=== PATIENT | male | born 1995 | race Caucasian/White ===

== ENCOUNTER 2025-01-22 20:33 | Emergency (ER) | payer OTHER, SELFPAY ==
--- OUTSIDE RECORDS SUMMARY | 2025-01-22 20:35 | XMS_ITS | Clinical Summary ---
[facility] Organization [facility] Address [address] [place] [address] Care Team Providers Care Casting House Worker Name Role Phone James Fernandez MD Primary Care Provider Source Comments You are receiving this document as you are listed as the primary care provider,follow-up provider, or the patient has been referred to you for consultation.This is in compliance with the Medicare and[facility] EHR Incentive Program,which states Providers who transition their patient to another setting of careor provider of care or refers their patient to another provider of care shouldprovide summary care record for each transition of care or referral. [facility] Allergies No known active allergies Medications DULoxetine (CYMBALTA) 60 MG capsuleIndicatio ns:Recurrent major depressive disorder, in full remission (HRC),Generalize d anxiety disorder (HRC) Take 1 Capsule (60 mg) by mouth daily. 90 Capsule 3 4 03/22/20 25 Active DULoxetine (CYMBALTA) 30 MG capsuleIndicatio ns:Episode of recurrent major depressive disorder, unspecified depression episode severity (HRC),Generalize d anxiety disorder (HRC) Take 1 capsule in AM and 2 capsules at bedtime. Indication: anxiety and depression 270 Capsule 3 4 Active Active Problems Problem Noted Date Diagnosed Date Generalized anxiety disorder 12/27/2023 Chronic insomnia 12/27/2023 Major depression 02/03/2023 Overview (02/04/2023): chronic, see office note dated 02/03/23 for details Tobacco use 01/03/2023 Overview (01/03/2023): up to 1 ppd since age 14, smoking 1/2 ppd lately. Updated 12/2022 Immunizations Immunization Administration Dates Next Due Influenza IIV4 (Quadrivalent) 0.5mL (07677) 10/16 Chiquis COVID-19 Vaccine 01/20/2021 PCV20 ([id number]) 01/02/2023 Pfizer Bivalent 12+ 01/02/2023 Pfizer Monovalent 12+ Purple Top 10/25/2021 Tdap 01/02/2023 Family History Medical History Relation Name Comments Bipolar Disorder Father Cancer, Breast Mother Cancer, Ovary Mother Dementia Maternal Grandmother No Known Problems Sister Relation Name Status Comments Father Alive Mother Alive Maternal Grandfather Maternal Grandmother Paternal Grandfather Paternal Grandmother Sister Alive Social History Tobacco Use Types Packs/Day Years Used Date Smoking Tobacco: Unknown Smokeless Tobacco: Never Tobacco Cessation:Counseling Given: Not Answered Alcohol Use Standard Drinks/Week Comments Yes 7 (1 standard drink = 0.6 oz pur e alcohol) PHQ-2 Answer Date Recorded PHQ-2 Score 5 09/20/2024 Financial Resource Strain Answer Date R ecorded Is it hard for you to pay fo r the very basics like food, housing, medical care or heating? No 12/29/2022 Food Insecurity Answer Date Recorded Does your food run out before you have the money to buy more? No 12/29/2022 Transportation Needs Answer Date Record ed Does a lack of transportatio n keep you from your medical appointments or from getting your medications? No 023 Sex and Gender Information Value Date Recorded Sex Assigned at Not on file Legal Sex Male 7:06 PM CDT Gender Identity Not on file Sexual Orientation Not on file Last Filed Vital Signs Vital Sign Reading Time Taken Comments Blood Pressure 112/88 02/04/2024 2:07 PM CDT Pulse 76 02/04/2024 2:07 PM CDT Temperature 37.1 C (98.8 F) 02/04/2024 2:07 PM CDT Respiratory Rate 16 02/04/2024 2:07 PM CDT Oxygen Saturation 98% 02/04/2024 2:07 PM CDT Inhaled Oxygen Concentration - - Weight 90.7 kg (200 lb) 08/27/2023 4:26 PM ASSEMBLER SURGICAL GARMENT Height 176 cm (5' 9.29) 08/27/2023 4:26 PM ASSEMBLER SURGICAL GARMENT Body Mass Index 29.29 08/27/2023 4:26 PM ASSEMBLER SURGICAL GARMENT Plan of Treatment Health Maintenance Due Date Last Done Comments Hep C Screening (Preventive Services) 1993 HIV Screening (Preventive Services) 2009 HepB (1) 2012 COVID-19 Vaccine (4 - 2023-2 5 season) 2024 01/02/2023, 10/25/2021, 01/20/2021 Influenza (#1) 2024 10/25/2021 Adult Preventive Visit 01/02/2025 01/02/2023 DTaP/Tdap/Td (2 - Tdap) 01/02/2033 01/02/2023 Zoster/Shingles (1 of 2) 2043 Pneumococcal Aged Out 01/02/2023 No longer eligi ble based on patient's age to complete this topic HPV Vaccine Aged Out No longer eligi ble based on patient's age to complete this topic HepA Aged Out No longer eligi ble based on patient's age to complete this topic Hib Aged Out No longer eligi ble based on patient's age to complete this topic IPV (Polio) Aged Out No longer eligi ble based on patient's age to complete this topic MCV4 Aged Out No longer eligi ble based on patient's age to complete this topic Meningococcal B Aged Out No longer el igible based on patient's age to complete this topic Insurance BCBS OUT OF STATE BCBS OUT OF STATE Care Teams Casting House Worker Relationship Specialty Start Date End Date James Fernandez MD [address] [place] [address] PCP - General Internal Medicine 01/02/23
[2025-01-22 20:38] VITALS: BP 162/114; PULSE 80; RESP 16; TEMP 36.9; O2SAT 98; BMI 28.5
--- NOTE | 2025-01-22 20:56 | ED.GENADULT ---
HPI - General Adult General Time Seen by Provider: 20:56 Date Seen: 01/22/25 Chief complaint: Nausea/Vomiting Stated complaint: severly dehyrdrated Time Seen by Provider: 01/22/25 20:51 Source: patient and RN notes reviewed Mode of arrival: ambulatory Limitations: no limitations History of Present Illness HPI narrative: This 29-year-old male is ambulatory into the ED of his own accord with concerns of dehydration. He endorses that he has been having night sweats for over 6 months, told nursing staff 2 months but he admits it has been at least 6 months. He uses marijuana to try to manage insomnia on a and night terrors. Tonight he developed some nausea and vomiting, some abdominal discomfort with this. He had been eating and drinking, feeling better earlier today. There has not been any fevers, no weight loss. He has heard about cyclical vomiting, states he would be surprised but the nausea vomiting really only started today. His mom has been diagnosed with cyclical vomiting without marijuana, she has had cancer. His primary concern is the nausea vomiting and he just feels he is overall dehydrated with his history of the sweating and now the nausea and vomiting. Related Data Home Medications ?Medication ?Instructions ?Recorded ?Confirmed duloxetine 60 mg capsule,delayed 60 mg PO DAILY 08/06/24 01/22/25 release Previous Rx's ?Medication ?Instructions ?Recorded albuterol sulfate 90 mcg/actuation 2 puff inhalation Q4-6H PRN 10/19/24 aerosol inhaler shortness of breath or wheezing #8.5 grams Allergies Allergy/AdvReac Type Severity Reaction Status Date / Time No Known Drug Allergies Allergy Verified 01/22/25 20:38 Review of Systems Status of ROS: Reports: 6 or more systems reviewed and unremarkable except as noted in History and below [facility] Social History Smoking Status: Current every day smoker Second hand tobacco smoke exposure: Yes How often do you have a drink containing alcohol: never AUDIT-C Alcohol total score: 0 Non-prescribed substance use: marijuana (any form) Exam Const: Vital Signs, click to edit/add: Vital Signs - 24 hr 01/22/25 20:38 01/22/25 21:10 01/22/25 22:45 Temperature 98.4 F 98.4 F Pulse Rate [Pulse Oximeter] 80 75 Respiratory Rate 16 16 Blood Pressure [Ri ght Upper Arm] 162/114 H 154/95 H Pulse Oximetry 98 98 98 Oxygen Delivery Me thod Room Air Room Air This 29-year-old male is alert, interactive, no apparent distress. He is ambulatory into the ED of his own accord, is hanging onto an emesis bag. Sclera clear, face atraumatic, able speak in complete sentences. Skin is warm but sweaty, he has sweat id through his T-shirt. Lungs are clear, good air entry, no wheeze or crackles, no tachypnea, no accessory muscle use. CV regular rate and rhythm, no murmur, normal S1-S2, no S3-S4. Abdomen is soft, nondistended, normal bowel sounds, no organomegaly, no rebound or guarding. Maybe some mild central complaint of some discomfort but not true tenderness on palpation. He states that when I palpate his abdomen it just makes him feel like he wants to throw up. Skin visualized without rash but diaphoretic. Documenting provider has reviewed patient's vital signs: yes Course Course ED Course: Patient and I discussed doing some screening labs. Night sweats for months without weight loss is less concerning to me but do think we should do some screening labs and that he definitely should follow up outpatient regardless. Will start with a flat and upright to ensure no abnormal bowel pattern. We did review entities such as gastroenteritis like nor virus to marijuana overuse syndromes which can include cyclical vomiting. We will give him a L of normal saline, 4 mg IV Zofran and see if he response to that. We will check a full complement of labs. We will make sure that we do not need to do any advanced imaging. Doubtful on his presentation that this encompasses an acute surgical abdomen. Reevaluation(s) Time of Reevaluation #1: 22:23 Reevaluation #1: Patient told nursing staff that he felt better after the Zofran and a L of fluids. Declined further evaluation. At the time he wanted to go, I was busy with other patients in the ER and could not attend to him immediately. He did request to sign AMA, wanted no further workup. I was able to talk to him briefly before he left. He is actually very pleasant but states he just wants to go home. He states he has done this himself once before and was severely dehydrated. I did review with him his lactate was elevated, would recommend another L of fluids but he does not want to wait, he does want to go home. He does not want any imaging, no x-rays done. I do not have all of his labs back. He would take some Zofran from [employer] which I will provide. Vital Signs Vital signs: Initial Vital Signs Temperature 98.4 F 01/22/25 20:38 Temperature Source Temporal Artery Scan 01/22/25 20:38 Pulse Rate 80 01/22/25 20:38 Respiratory Rate 16 01/22/25 20:38 Blood Pressure 162/114 H 01/22/25 20:38 Blood Pressure Mean 130 H 01/22/25 20:38 Pulse Oximetry 98 01/22/25 20:38 Oxygen Delivery Method Room Air 01/22/25 20:38 Vital Signs Temperature 98.4 F 01/22/25 20:38 Pulse Rate 80 01/22/25 20:38 Respiratory Rate 16 01/22/25 20:38 Blood Pressure 162/114 H 01/22/25 20:38 Pulse Oximetry 98 01/22/25 20:38 Oxygen Delivery Method Room Air 01/22/25 20:38 Temperature 98.4 F 01/22/25 22:45 Pulse Rate 75 01/22/25 22:45 Respiratory Rate 16 01/22/25 22:45 Blood Pressure 154/95 H 01/22/25 22:45 Pulse Oximetry 98 01/22/25 22:45 Oxygen Delivery Method Room Air 01/22/25 22:45 Medications Administered Medications: Discontinued Medications Generic Name Dose Route Start Last Admin Trade Name Freq PRN Reason Stop Dose Admin Sodium Chloride 1,000 mls @ 1,000 mls/hr 01/22/25 21:14 01/22/25 22:17 0.9 % Sodium Chloride 1000 Ml IV 01/22/25 22:13 Infused .Q1H ANASTACIA Infusion Ondansetron HCl 4 mg 01/22/25 21:14 01/22/25 21:23 Ondansetron 2 Mg/Ml Inj IVP 01/22/25 21:15 4 mg ONCE ONE Administration Medical Decision Making Lab Data Lab results reviewed: Yes I reviewed the patient's lab results Labs: Lab Results 04/09/25 04/09/25 Range/Units 21:16 21:28 WBC 12.75 H (4.50-11.00) K/uL RBC 5.54 (4.30-5.90) m/uL Hgb 16.3 (13.5-17.5) gm/dL Hct 48.8 (37.0-53.0) % MCV 88 (80-100) fL MCH 29 (26-34) pg MCHC 33 (32-36) gm/dL RDW Coeff of Fátima 12.7 (11.5-15.5) % Plt Count 382 (140-440) K/uL Neut % (Auto) 69.9 (42.0-72.0) % Lymph % (Auto) 20.5 (20-44) % Taliaferro % (Auto) 7.7 (0.0-11.0) % Eos % (Auto) 1.3 (0.0-7.0) % Baso % (Auto) 0.5 (0.0-3.0) % Neut # (Auto) 8.90 H (1.7-7.0) K/uL Lymph # (Auto) 2.60 (0.90-2.90) K/uL Taliaferro # (Auto) 1.00 H (0.00-0.90) K/UL Eos # (Auto) 0.20 (0.00-0.50) K/uL Baso # (Auto) 0.10 (0.00-0.30) K/uL Abs Immat Gran (auto) 0.00 (0.00-0.30) K/uL Imm/Tot Granulo (auto) 0.1 % Sodium 137 (135-149) mmol/L Potassium 3.9 (3.6-5.1) mmol/L Chloride 104 (96-114) mmol/L Carbon Dioxide 24 (20-32) mmol/L Anion Gap 9 (7-15) mEq/L BUN 9 (5-24) mg/dL Creatinine 0.8 (0.5-1.5) mg/dL Estimated Creat Clear 133.79 Estimated GFR 121 ml/min Glucose 106 (60-115) mg/dL Lactate 3.4 H (0.5-1.9) mmol/L Calcium 8.6 (8.4-10.6) mg/dL Total Bilirubin 0.5 (0.1-1.5) mg/dL Direct Bilirubin 0.3 (0.0-0.5) mg/dL AST 29 (12-35) U/L ALT 33 (4-50) U/L Alkaline Phosphatase 78 (40-150) U/L C-Reactive Protein < 0.5 L (0.5-1.0) mg/dL Total Protein 6.6 (6.0-8.3) g/dL Albumin 4.4 (3.3-5.0) g/dL Lipase 129 (23-300) U/L Urine Color Yellow (Yellow) Urine Appearance Clear (Clear) Urine pH 6.0 (5.0-8.5) Ur Specific [place] 1.015 (1.000-1.030) Urine Protein Negative (Negative) Urine Glucose (UA) Negative (Negative) Urine Ketones 1+ A (Negative) Urine Blood Negative (Negative) Urine Nitrite Negative (Negative) Urine Bilirubin Negative (Negative) Urine Urobilinogen 0.2 (0.2-1.0) Ur Leukocyte Esterase Negative (Negative) Urine RBC 0-2 (0-2) Urine WBC 0-2 (0-5) Ur Squamous Epith Cells Few (None-Few) Urine Bacteria None (None) Imaging Data Abdominal x-ray: My impression: Patient left and declined his flat and upright abdominal imaging. Discharge Plan Discharge Clinical Impression: Acute dehydration Nausea and vomiting Qualifiers: Vomiting type: unspecified Qualified Code(s): R11.2 - Nausea with vomiting, unspecified Patient Disposition: Home, Self-Care Condition: Improved Instructions: Dehydration (ED), Acute Nausea and Vomiting (ED) Additional Instructions: Can use the Zofran 4 mg, 1 tablet up to 3 times a day as needed for ongoing symptoms. Try to drink small frequent sips of clear liquids to help keep you hydrated. Do recommend that you follow-up with your primary care provider in clinic to discuss all of your symptoms further. All of your labs were not back at discharge, if there is anything concerning, we will try to contact you and notify you of abnormalities. You should seek re-evaluation with worsening or recurrent symptoms. Activity Level: Activity as Tolerated Prescriptions: No Action duloxetine 60 mg capsule,delayed release(DR/EC) 60 mg PO DAILY albuterol sulfate 90 mcg/actuation HFA aerosol inhaler 2 puff inhalation Q4-6H PRN (Reason: shortness of breath or wheezing) Qty: 8.5 0RF Follow Up/Referrals: Provider,Not a Local [Primary Care Provider] - Stand Alone Forms: [employer] Info Instructions
[2025-01-22 21:10] VITALS: O2SAT 98
[2025-01-22] MEDS: ONDANSETRON 2 MG/ML inj 4 MG IVP (21:23)
[2025-01-22] MEDS: 0.9 % SODIUM CHLORIDE 1000 ml 1,000 ML IV (21:24)
[2025-01-22 21:27] LABS: Appearance Urine Clear (Clear); Bilirubin Urine Negative (Negative); Blood Urine Negative (Negative); Color Urine Yellow (Yellow); Glucose Urine Negative (Negative); Ketones Urine 1+ (Negative); Leukocyte Esterase Urine Negative (Negative); Nitrite Urine Negative (Negative); Protein Urine Negative (Negative); Specific Gravity Urine 1.015 (1.000-1.030); Urobilinogen Urine 0.2 (0.2-1.0)
--- OUTSIDE RECORDS SUMMARY | 2025-01-22 21:31 | XMS_ITS | Clinical Summary ---
[facility] Address [address] [place] [address] Care Team Providers Care Fitness And Wellness Director Name Role Phone James Fernandez MD Primary Care Provider [phone] Source Comments You are receiving this document as you are listed as the primary care provider,follow-up provider, or the patient has been referred to you for consultation.This is in compliance with the Medicare andOhio[facility] Health Centercaid EHR Incentive Program,which states Providers who transition their patient to another setting of careor provider of care or refers their patient to another provider of care shouldprovide summary care record for each transition of care or referral. [facility] Allergies No known active allergies Medications DULoxetine [...] Dates Next Due Influenza IIV4 (Quadrivalent) 0.5mL (27679) 10/16 Chiquis COVID-19 Vaccine 01/20/2021 PCV20 ([id number]) 01/02/2023 Pfizer Bivalent 12+ 01/02/2023 Pfizer Monovalent [...] 90.7 kg (200 lb) 08/27/2023 4:26 PM PLATE AND FRAME FILTER OPERATOR Height 176 cm (5' 9.29) 08/27/2023 4:26 PM PLATE AND FRAME FILTER OPERATOR Body Mass Index 29.29 08/27/2023 4:26 PM PLATE AND FRAME FILTER OPERATOR Plan of Treatment Health Maintenance Due Date [...] STATE BCBS OUT OF STATE Care Teams Fitness And Wellness Director Relationship Specialty Start Date End Date James Fernandez MD [address] [place] [address] PCP - General Internal Medicine 01/02/23
[2025-01-22 21:34] LABS: Lactate* 3.4 mmol/L (0.5-1.9)
[2025-01-22 21:37] LABS: Basophils Percent Auto 0.5 % (0.0-3.0); Eosinophils Percent Auto 1.3 % (0.0-7.0); Hematocrit 48.8 % (37.0-53.0); Hemoglobin* 16.3 gm/dL (13.5-17.5); Immature Granulocytes Pct Auto 0.1 %; Lymphocytes Percent Auto 20.5 % (20-44); Mean Corpuscular HGB Conc 33 gm/dL (32-36); Mean Corpuscular Hemoglobin 29 pg (26-34); Mean Corpuscular Volume 88 fL (80-100); Monocytes Percent Auto 7.7 % (0.0-11.0); Neutrophils Percent Auto 69.9 % (42.0-72.0); Platelet Count* 382 K/uL (140-440); RDW Coefficient of Variation % 12.7 % (11.5-15.5); Red Blood Count 5.54 m/uL (4.30-5.90); White Blood Count* 12.75 K/uL (4.50-11.00)
[2025-01-22 21:42] LABS: RBC Urine 0-2 (0-2); Squamous Epithelial Cell Urine Few (None-Few); WBC Urine 0-2 (0-5)
[2025-01-22 21:47] LABS: Slide Review Reflex No
[2025-01-22 22:21] LABS: Chloride* 104 mmol/L (96-114)
[2025-01-22 22:22] LABS: Albumin* 4.4 g/dL (3.3-5.0); Potassium* 3.9 mmol/L (3.6-5.1); Sodium* 137 mmol/L (135-149)
[2025-01-22 22:24] LABS: Blood Urea Nitrogen* 9 mg/dL (5-24); Creatinine* 0.8 mg/dL (0.5-1.5); Est. Creatinine Clearance* 133.79; Estimated Glomerular Filt Rate 121 ml/min
[2025-01-22 22:25] LABS: Alanine Aminotransferase* 33 U/L (4-50); Alkaline Phosphatase* 78 U/L (40-150); Anion Gap 9 mEq/L (7-15); Aspartate Amino Transferase* 29 U/L (12-35); Bilirubin Direct* 0.3 mg/dL (0.0-0.5); Bilirubin Total* 0.5 mg/dL (0.1-1.5); Calcium* 8.6 mg/dL (8.4-10.6); Carbon Dioxide* 24 mmol/L (20-32); Glucose* 106 mg/dL (60-115); Lipase* 129 U/L (23-300); Total Protein* 6.6 g/dL (6.0-8.3)
[2025-01-22 22:28] LABS: C Reactive Protein* < 0.5 mg/dL (0.5-1.0)
[2025-01-22 22:45] VITALS: BP 154/95; PULSE 75; RESP 16; TEMP 36.9; O2SAT 98
[2025-01-22 22:52] VITALS: BP 154/95; PULSE 75; RESP 16; TEMP 36.9
== END 2025-01-22 22:54 | disposition home or self-care (01) ==
PROVIDERS: Emergency Provider Family Medicine
DX: E86.0 Dehydration (principal); R11.2 Nausea with vomiting, unspecified
CPT/HCPCS: 36415; 80053; 81001; 82248; 83605; 83690; 85025; 86140; 94761; 96374; 99284; J2405; J7030

== ENCOUNTER 2025-04-11 11:22 | Outpatient (CLI) | payer OTHER, SELFPAY ==
--- OUTSIDE RECORDS SUMMARY | 2025-04-14 14:26 | XMS_ITS | Clinical Summary ---
Author Organization [facility] Address [address] [place] [address] Care Team Providers Care Instant Print Operator Name Role Phone James Fernandez MD Primary Care Provider Source Comments You are receiving this document as you are listed as the primary care provider,follow-up provider, or the patient has been referred to you for consultation.This is in compliance with the Medicare and[facility] Systemca[facility] EHR Incentive Program,which states Providers who transition their patient to another setting of careor provider of care or refers their patient to another provider of care shouldprovide summary care record for each transition of care or referral. [facility] Allergies No known active allergies Medications DULoxetine [...] Type Department Care Team Description 03/22/2025 Refill [facility] Internal Medicine [address] [place] [address] James Fernandez MD Refill (DULoxetine (CYMBALTA) 60 MG delayed release capsule [Pharmacy Med Name: DULOXETINE HCL DR 60 MG CAP]) 02/14/2025 Telephone [facility] Internal Medicine [address] [place] [phone] James Fernandez MD Depression Registry Call 2 02/03/2025 Telephone [facility] Internal Medicine [address] [place] [phone] James Fernandez MD Depression Registry Call 1 from Last 3 Months Immunizations Immunization Administration Dates Next Due Influenza IIV4 (Quadrivalent) 0.5mL (77502) 10/16 Chiquis COVID-19 Vaccine 01/20/2021 PCV20 ([id number]) 01/02/2023 Pfizer Bivalent 12+ 01/02/2023 Pfizer Monovalent [...] 90.7 kg (200 lb) 08/27/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
--- OUTSIDE RECORDS SUMMARY | 2025-04-14 14:26 | XMS_ITS | Encounter Summary ---
Author Organization [facility] Address [address] [address] Care Team Providers Care Certified Prosthetist/Orthotist Name Role Phone James Fernandez MD Primary Care Provider [phone] Reason for Visit * Reason Comments Refill DULoxetine (CYMBALTA ) 60 MG delayed release capsule [Pharmacy Med Name: DULOXETINE HCL DR 60 MG CAP] Encounter Details Date Type Department Care Team (Late st Contact Info) Description 03/22/2025 Refill [facility] Internal Medicine [address] [place] [address] [phone] James Fernandez MD [address] [place] [address] Refill (DULoxetine (CYMBALTA) 60 MG [...] visit: None [employer] Embedded Refills, Reference: [id number], 03/22/2025 7:16:23 AM CDT, Pool: Refill Centralized Services - Primary Care ([id number]) documented in this encounter Plan of Treatment Not on file documented as of this encounter Visit Diagnoses Diagnosis Recurrent major depressive disorder, in full remission (HRC) Generalized anxiety disorder (HRC) Generalized anxiety disorder documented in this encounter Care Teams Certified Prosthetist/Orthotist Relationship Specialty Start Date End Date James Fernandez MD [address] [place] [address] PCP - General Internal Medicine 01/02/23 documented as of this encounter
--- OUTSIDE RECORDS SUMMARY | 2025-04-15 00:47 | XMS_ITS | Clinical Summary ---
[facility] Organization [facility] Address [address] [place] [address] Care Team Providers Care Hybrid Corn Breeder Name Role Phone James Fernandez MD Primary Care Provider Source Comments You are receiving this document as you are listed as the primary care provider,follow-up provider, or the patient has been referred to you for consultation.This is in compliance with the Medicare and[facility] EHR Incentive Program,which states Providers who transition their patient to another setting of careor provider of care or refers their patient to another provider of care shouldprovide summary care record for each transition of care or referral. [facility] Allergies No known active allergies Medications DULoxetine [...] Type Department Care Team Description 03/22/2025 Refill [facility] Internal Medicine [address] [place] [address] James Fernandez MD Refill (DULoxetine (CYMBALTA) 60 MG delayed release capsule [Pharmacy Med Name: DULOXETINE HCL DR 60 MG CAP]) 02/14/2025 Telephone [facility] Internal Medicine [address] [place] [phone] James Fernandez MD Depression Registry Call 2 02/03/2025 Telephone [facility] Internal Medicine [address] [place] [phone] James Fernandez MD Depression Registry Call 1 from Last 3 Months Immunizations Immunization Administration Dates Next Due Influenza IIV4 (Quadrivalent) 0.5mL (70206) 10/16 Chiquis COVID-19 Vaccine 01/20/2021 PCV20 ([id number]) 01/02/2023 Pfizer Bivalent 12+ 01/02/2023 Pfizer Monovalent [...] 90.7 kg (200 lb) 08/27/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
--- OUTSIDE RECORDS SUMMARY | 2025-04-15 00:47 | XMS_ITS | Encounter Summary ---
Author Organization [facility] Address [address], [place] [address] Care Team Providers Care Curling Machine Operator Name Role Phone James Fernandez MD Primary Care Provider [phone] Reason for Visit * Reason Comments Refill DULoxetine (CYMBALTA ) 60 MG delayed release capsule [Pharmacy Med Name: DULOXETINE HCL DR 60 MG CAP] Encounter Details Date Type Department Care Team (Late st Contact Info) Description 03/22/2025 Refill [facility] Internal Medicine [address] [place] [phone] James Fernandez MD [address] [place] [address] Refill (DULoxetine (CYMBALTA) 60 MG [...] visit: None [employer] Embedded Refills, Reference: [id number], 03/22/2025 7:16:23 AM CDT, Pool: Refill Centralized Services - Primary Care ([id number]) documented in this encounter Plan of Treatment Not on file documented as of this encounter Visit Diagnoses Diagnosis Recurrent major depressive disorder, in full remission (HRC) Generalized anxiety disorder (HRC) Generalized anxiety disorder documented in this encounter Care Teams Curling Machine Operator Relationship Specialty Start Date End Date James Fernandez MD [address] [place] [address] PCP - General Internal Medicine 01/02/23 documented as of this encounter
== END 2025-04-11 11:23 | disposition home or self-care (01) ==
PROVIDERS: Visit Provider Family Medicine
DX: R10.9 Unspecified abdominal pain (principal); R11.2 Nausea with vomiting, unspecified
CPT/HCPCS: A0425; A0433

== ENCOUNTER 2025-04-11 11:51 | Emergency (ER) | payer OTHER, SELFPAY ==
--- OUTSIDE RECORDS SUMMARY | 2025-04-11 11:53 | XMS_ITS | Clinical Summary ---
[facility] Organization [facility] Address [address] [place] [address] Care Team Providers Care Jewel Bearing Broacher Name Role Phone James Fernandez MD Primary Care Provider [phone] Source Comments You are receiving this document as you are listed as the primary care provider,follow-up provider, or the patient has been referred to you for consultation.This is in compliance with the Medicare andKind[facility]caid EHR Incentive Program,which states Providers who transition their patient to another setting of careor provider of care or refers their patient to another provider of care shouldprovide summary care record for each transition of care or referral. [facility] [employer] Allergies No known active allergies Medications DULoxetine (CYMBALTA) 60 MG capsuleIndicatio ns:Recurrent major depressive disorder, in full remission (HRC),Generalize d anxiety disorder (HRC) Take 1 Capsule (60 mg) by mouth daily. 90 Capsule 3 4 Active DULoxetine (CYMBALTA) 30 MG capsuleIndicatio ns:Episode [...] 14, smoking 1/2 ppd lately. Updated 12/2022 Encounters Date Type Department Care Team Description 03/22/2025 Refill [facility] Internal Medicine [address] [place] [address] James Fernandez MD Refill (DULoxetine (CYMBALTA) 60 MG delayed release capsule [Pharmacy Med Name: DULOXETINE HCL DR 60 MG CAP]) 02/14/2025 Telephone [facility] Internal Medicine [address] [place] [phone] James Fernandez MD Depression Registry Call 2 02/03/2025 Telephone [facility] Internal Medicine [address] [place] [phone] James Fernandez MD Depression Registry Call 1 from Last 3 Months Immunizations Immunization Administration Dates Next Due Influenza IIV4 (Quadrivalent) 0.5mL (58906) 10/16 Chiquis COVID-19 Vaccine 01/20/2021 PCV20 ([id number]) 01/02/2023 Pfizer Bivalent 12+ 01/02/2023 Pfizer Monovalent [...] 90.7 kg (200 lb) 08/27/2023 4:26 PM GUARD CAPTAIN Height 176 cm (5' 9.29) 08/27/2023 4:26 PM GUARD CAPTAIN Body Mass Index 29.29 08/27/2023 4:26 PM GUARD CAPTAIN Plan of Treatment Health Maintenance Due Date Last Done Comments Hep C Screening (Preventive Services) 1993 HIV Screening (Preventive Services) 2009 HepB Vaccine (1) 2012 COVID-19 Vaccine (4 - 2023-2 5 season) 2024 01/02/2023, 10/25/2021, 01/20/2021 Adult Preventive Visit 01/02/2025 01/02/2023 Influenza Vaccine (Season Ended) 2025 10/25/2021 DTaP/Tdap/Td Vaccine (2 - Tdap) 01/02/2033 01/02/2023 Zoster/Shingles Vaccine (1 o f 2) 2043 Pneumococcal Vaccine Aged Out 01/02/2023 No long er eligible based on patient's age to complete this topic HPV Vaccine Aged Out No longer eligi ble based on patient's age to complete this topic HepA Vaccine Aged Out No longer eligi ble based on patient's age to complete this topic Hib Vaccine Aged Out No longer eligi ble based on patient's age to complete this topic IPV (Polio) Vaccine Aged Out No longe r eligible based on patient's age to complete this topic MCV4 Vaccine Aged Out No longer eligi ble based on patient's age to complete this topic Meningococcal B Vaccine Aged Out No l onger eligible based on patient's age to complete this topic Insurance BCBS OUT OF STATE BCBS OUT OF STATE Care Teams Jewel Bearing Broacher Relationship Specialty Start Date End Date James Fernandez MD [address] [place] [address] PCP - General Internal Medicine 01/02/23
--- OUTSIDE RECORDS SUMMARY | 2025-04-11 11:53 | XMS_ITS | Encounter Summary ---
Author Organization [facility] Address [address] [address] Care Team Providers Care Step Down Specialist Name Role Phone James Fernandez MD Primary Care Provider [phone] Reason for Visit * Reason Comments Refill DULoxetine (CYMBALTA ) 60 MG delayed release capsule [Pharmacy Med Name: DULOXETINE HCL DR 60 MG CAP] Encounter Details Date Type Department Care Team (Late st Contact Info) Description 03/22/2025 Refill [facility] Internal Medicine [address] [place] [phone] James Fernandez MD [address] [place] [address] Refill (DULoxetine (CYMBALTA) 60 MG delayed release capsule [Pharmacy Med Name: DULOXETINE HCL DR 60 MG CAP]) Social History Tobacco Use Types Packs/Day Years Used Date Smoking Tobacco: Unknown Smokeless Tobacco: Never Alcohol Use Standard Drinks/Week Comments Yes 7 [...] on file Sexual Orientation Not on file documented as of this encounter Nursing Notes * Meg Barksdale RN - 03/24/2025 2:41 PM CDT Refill request denied. An updated prescription with new dosing was previously sent to the pharmacy. * Elianasandijarek Jasonwilman Xrwcomm - 03/22/2025 7:16 AM CDT DULoxetine (CYMBALTA) 60 MG delayed release capsule [Pharmacy Med Name: DULOXETINE HCL DR 60 MG CAP] Medication started: 12/21/2023 Last ordered by JAMES FERNANDEZ R: 03/22/2024 (365 days ago) QTY: 90, Refills: 3, Sig: take 1 capsule (60 mg) by mouth daily. (changed but equivalent) -> The medication is active at more than one strength (60 mg on 03/22/2024, 30 mg on 09/20/2024). -> Refill x 6 months, qty: 90, refills: 1 (until due for an office visit) Last qualifying visit: 09/20/2024 (with JAMES FERNANDEZ) Next scheduled visit: None [employer] Emb[employer]ded Refills, Reference: [id number], 03/22/2025 7:16:23 AM CDT, Pool: Refill Centralized Services - Primary Care ([id number]) documented in this encounter Plan of Treatment Not on file documented as of this encounter Visit Diagnoses Diagnosis Recurrent major depressive disorder, in full remission (HRC) Generalized anxiety disorder (HRC) Generalized anxiety disorder documented in this encounter Care Teams Step Down Specialist Relationship Specialty Start Date End Date James Fernandez MD [address] [place] [address] PCP - General Internal Medicine 01/02/23 documented as of this encounter
[2025-04-11 11:56] VITALS: BP 143/94; PULSE 86; RESP 18; TEMP 36.3; O2SAT 100; BMI 27.3
--- NOTE | 2025-04-11 12:40 | ED_ITS ---
HPI - General Adult General Date Seen: 04/11/25 Chief complaint: Nausea/Vomiting Stated complaint: nausea - vomiting Time Seen by Provider: 04/11/25 12:03 History of Present Illness HPI narrative: Patient is a 29-year-old here with nausea and vomiting for the past several days. He says he thinks he has a ?bad case of food poisoning. He has had some crampy diffuse abdominal pain, he has not had any diarrhea. No identifiable food trigger that he is aware of. No past medical history that he notes, no surgeries. Has been seen here once before for nausea and vomiting. Is a daily marijuana user. He denies significant alcohol use. Does smoke cigarettes, no other substance use. No fevers, rashes, travel. He came in by EMS, was given 500 mL of normal saline, he tells me he was given 2 doses of Zofran and 1 dose of something that starts with a D, he thinks droperidol sounds right. He is feeling improved and turns of the nausea, is feeling very thirsty and would like to try drinking some water. Related Data Home Medications ?Medication ?Instructions ?Recorded ?Confirmed duloxetine 60 mg capsule,delayed 60 mg PO DAILY 04/11/25 release Previous Rx's ?Medication ?Instructions ?Recorded albuterol sulfate 90 mcg/actuation 2 puff inhalation Q 4-6H PRN 10/19/24 aerosol inhaler shortness of breath or wheez ing #8.5 grams Allergies Allergy/AdvReac Type Severity Reaction Status Date / Time No Known Drug Allergies Allergy Verified 04/11/25 12:02 Review of Systems Status of ROS: Reports: 10 or more systems reviewed and unremarkable except as noted in History and below [facility] Social History Smoking Status: Current every day smoker Second hand tobacco smoke exposure: Yes How often do you have a drink containing alcohol: never AUDIT-C Alcohol total score: 0 Non-prescribed substance use: marijuana (any form) Exam Narrative: Exam Narrative: Vital signs reviewed In general, alert, nontoxic young man. Well-appearing, cooperative. Head: Normocephalic, atraumatic. Eyes: Sclera clear. Pupils equal and reactive. ENT: Mucous membranes moist. Neck: Supple without adenopathy. Heart: Regular rate and rhythm without murmur. Lungs: Clear. No increased work of breathing, crackles or wheezes. Abdomen: Soft, nontender to palpation. Bowel sounds present. Extremities: Well perfused, pulses intact. No significant edema. Neurologic: Alert, conversant. Speech fluent, face symmetric. Moves all extremities equally. Skin: Warm, dry well perfused. Affect: Normal. Const: Vital Signs, click to edit/add: Vital Signs - 24 hr 04/11/25 11:56 04/11/25 13:29 Temperature 97.3 F L Pulse Rate [Right Pulse Oximeter] 86 96 Respiratory Rate 18 16 Blood Pressure [Ri ght Upper Arm] 143/94 H 131/89 Pulse Oximetry 100 Oxygen Delivery Me thod Room Air Course Course ED Course: He is feeling better from a GI standpoint, does report some ongoing crampy abdominal pain, will give another L of saline and some Toradol. He would like to try drinking some water which I think is reasonable. Will check some electrolytes, magnesium, he has a completely nontender abdomen and I do not think this represents a surgical process such as appendicitis, cholecystitis, bowel obstruction, pancreatitis etcetera. I think if labs look okay, we can treat symptomatically with fluids and nausea medicines. There is of course the daily marijuana use and previous visit for nausea and vomiting which raises the possibility for cyclic vomiting. I did not directly raise the subject with him today as this is only his 2nd visit in 2 months. Labs are reassuring. He is feeling well, was able to drink water without difficulty. He is comfortable with discharge. Will give him some Zofran if needed for further nausea or vomiting. Clears today, advance as able. If he has further visits for nausea and vomiting, I would broach the subject of cyclic vomiting with him. Vital Signs Vital signs: Initial Vital Signs Temperature 97.3 F L 04/11/25 11:56 Temperature Source Temporal Artery Scan 04/11/25 11:56 Pulse Rate 86 04/11/25 11:56 Pulse Rhythm Regular 04/11/25 11:56 Pulse Strength 3+ Normal 04/11/25 11:56 Respiratory Rate 18 04/11/25 11:56 Blood Pressure 143/94 H 04/11/25 11:56 Blood Pressure Mean 110 H 04/11/25 11:56 Blood Pressure Position High-Fowlers 04/11/25 11:56 Pulse Oximetry 100 04/11/25 11:56 Oxygen Delivery Method Room Air 04/11/25 11:56 Vital Signs Temperature 97.3 F L 04/11/25 11:56 Pulse Rate 86 04/11/25 11:56 Respiratory Rate 18 04/11/25 11:56 Blood Pressure 143/94 H 04/11/25 11:56 Pulse Oximetry 100 04/11/25 11:56 Oxygen Delivery Method Room Air 04/11/25 11:56 Temperature 97.3 F L 04/11/25 11:56 Pulse Rate 96 04/11/25 13:29 Respiratory Rate 16 04/11/25 13:29 Blood Pressure 131/89 04/11/25 13:29 Pulse Oximetry 100 04/11/25 11:56 Oxygen Delivery Method Room Air 04/11/25 11:56 Medications Administered Medications: Discontinued Medications Generic Name Dose Route Start Last Admin Trade Name Freq PRN Reason Stop Dose Admin Sodium Chloride 1,000 mls @ 1,000 mls/hr 04/11/25 12:15 04/11/25 13:19 0.9 % Sodium Chloride 1000 Ml IV 04/11/25 13:14 Infused .Q1H ANASTACIA Infusion Ketorolac Tromethamine 15 mg 04/11/25 12:42 04/11/25 12:47 Ketorolac 15 Mg/Ml Inj IVP 04/11/25 12:43 15 mg ONCE ONE Administration Medical Decision Making Lab Data Labs: Lab Results 04/11/25 Range/Units 12:33 Sodium 136 (135-149) mmol/L Potassium 3.7 (3.6-5.1) mmol/L Chloride 99 (96-114) mmol/L Carbon Dioxide 25 (20-32) mmol/L Anion Gap 12 (7-15) mEq/L BUN 16 (5-24) mg/dL Creatinine 0.9 (0.5-1.5) mg/dL Estimated Creat Clear 122.79 Estimated GFR 117 ml/min Glucose 126 H (60-115) mg/dL Calcium 9.5 (8.4-10.6) mg/dL Magnesium 2.1 (1.5-2.6) mg/dL Discharge Plan Discharge Clinical Impression: Vomiting Patient Disposition: Home, Self-Care Condition: Improved Instructions: Acute Nausea and Vomiting (DC) Additional Instructions: Clear liquids today, advance your diet as symptoms allow. You can use Zofran if needed for further nausea or vomiting. If you have more severe or focal abdom inal pain, vomiting despite medication, fevers, vomiting blood, or other worsening, return at any time. See your primary doctor/clinic if not improving over the next 1-2 days. Prescriptions: No Action duloxetine 60 mg capsule,delayed release(DR/EC) 60 mg PO DAILY albuterol sulfate 90 mcg/actuation HFA aerosol inhaler 2 puff inhalation Q4-6H PRN (Reason: shortness of breath or wheezing) Qty: 8.5 0RF Follow Up/Referrals: Provider,Not a Local [Primary Care Provider, Family Practice] Stand Alone Forms: [place] Communication Info Instructions
[2025-04-11] MEDS: 0.9 % SODIUM CHLORIDE 1000 ml 1,000 ML IV (12:42)
[2025-04-11] MEDS: KETOROLAC 15 MG/ML inj IVP (12:47)
[2025-04-11 13:04] LABS: Chloride* 99 mmol/L (96-114); Potassium* 3.7 mmol/L (3.6-5.1); Sodium* 136 mmol/L (135-149)
[2025-04-11 13:07] LABS: Anion Gap 12 mEq/L (7-15); Blood Urea Nitrogen* 16 mg/dL (5-24); Calcium* 9.5 mg/dL (8.4-10.6); Carbon Dioxide* 25 mmol/L (20-32); Creatinine* 0.9 mg/dL (0.5-1.5); Est. Creatinine Clearance* 122.79; Estimated Glomerular Filt Rate 117 ml/min; Glucose* 126 mg/dL (60-115)
[2025-04-11 13:08] LABS: Magnesium* 2.1 mg/dL (1.5-2.6)
[2025-04-11 13:29] VITALS: BP 131/89; PULSE 96; RESP 16
== END 2025-04-11 13:29 | disposition home or self-care (01) ==
PROVIDERS: Emergency Provider Emergency Medicine
DX: R11.2 Nausea with vomiting, unspecified (principal)
CPT/HCPCS: 36415; 80048; 83735; 96374; 99283; 99284; J1885; J7030

== ENCOUNTER 2025-08-17 10:07 | Emergency (ER) | payer OTHER, SELFPAY ==
[2025-08-17] VITALS (14 sets, daily range): BP systolic 140–160; BP diastolic 97–115; PULSE 86–106; RESP 16; TEMP 37.1; O2SAT 92–100
--- OUTSIDE RECORDS SUMMARY | 2025-08-17 10:12 | XMS_ITS | Clinical Summary ---
Author [facility] Address [address] [place] [address] Care Team Providers Care Mixer Attendant Name Role Phone James Fernandez MD Primary Care Provider [phone] Source Comments You are receiving this document as you are listed as the primary care provider,follow-up provider, or the patient has been referred to you for consultation.This is in compliance with the Medicare and[facility] Hospitalca[facility] EHR Incentive Program,which states Providers who transition their patient to another setting of careor provider of care or refers their patient to another provider of care shouldprovide summary care record for each transition of care or referral. 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 Height 176 cm (5' 9.29) 08/27/2023 4:26 PM YARN FINISHER Body Mass Index 29.29 08/27/2023 4:26 PM YARN FINISHER Plan of Treatment Health Maintenance Due Date Last Done Comments Hep C Screening (Preventive Services) 1993 HIV Screening (Preventive Services) 2009 HepB Vaccine (1) 2012 HPV Vaccine (1 - 3-dose SCDM series) 2020 Adult Preventive Visit 01/02/2025 01/02/2023 COVID-19 Vaccine (4 - 2024-2 6 season) 2025 01/02/2023, 10/25/2021, 01/20/2021 Influenza Vaccine (#1) 2025 10/25/2021 DTaP/Tdap/Td Vaccine (2 - Tdap) [...] STATE BCBS OUT OF STATE Care Teams Mixer Attendant Relationship Specialty Start Date End Date James Fernandez MD [address] [place] [address] PCP - General Internal Medicine 01/02/23
[2025-08-17] MEDS: LACTATED RINGERS 1000 ML 1,000 ML IV (10:57)
--- NOTE | 2025-08-17 11:00 | ED.GENADULT ---
HPI - General Adult General Date Seen: 08/17/25 Chief complaint: Nausea/Vomiting Stated complaint: vomiting, dehydrated, sent over from Time Seen by Provider: 08/17/25 10:09 Source: patient Mode of arrival: ambulatory Limitations: no limitations History of Present Illness HPI narrative: Patient is a 30-year-old male presenting for nausea, vomiting, right flank pain, abdominal pain. He was sent to the emergency department from urgent care. He states since January of 2025 he has had 6-7 episodes we get severe nausea and vomiting. He states he will vomit up to 200 times in a 4-5 day span and symptoms started to resolve. He has been evaluated for this emergency department in the past. He does have a history of daily marijuana use. He states he has not had any further imaging for this. Does use Zofran at home she states helps if gets ahead of it. Went to urgent care this morning and had elevated creatinine and so was sent to the emergency department for further evaluation. Denies fevers or chills. Does CT of some mild abdominal pain and mild right flank pain. Symptoms seem to be better than they were a few days ago he states. Denies fevers, chills, chest pain, shortness of breath, diarrhea, constipation. States he has only urinated a couple times in the past few days. Has not noticed any dysuria or foul smelling urine. No other concerns noted Related Data Home Medications ?Medication ?Instructions ?Recorded ?Confirmed duloxetine 60 mg capsule,delayed 60 mg PO DAILY 08/06/24 08/17/25 release Previous Rx's ?Medication ?Instructions ?Recorded albuterol sulfate 90 mcg/actuation 2 puff inhalation Q4-6H PRN 10/19/24 aerosol inhaler shortness of breath or wheezing #8.5 grams Allergies Allergy/AdvReac Type Severity Reaction Status Date / Time No Known Drug Allergies Allergy Verified 08/17/25 10:21 Review of Systems Status of ROS: Reports: 10 or more systems reviewed and unremarkable except as noted in History and below [facility] Social History Smoking Status: Current every day smoker Second hand tobacco smoke exposure: Yes How often do you have a drink containing alcohol: never AUDIT-C Alcohol total score: 0 Non-prescribed substance use: marijuana (any form) Exam Narrative: Exam Narrative: Const: Well-nourished, Well-developed, in mild distress Eyes: PERRL, no conjunctival injection, and symmetrical lids HENT: Atraumatic external nose and ears. Moist mucous membranes. Neck: Symmetric, trachea midline, No thyromegaly. CVS: RRR, No murmurs or gallops. Peripheral pulses 2+ and equal in all extremities RESP: Unlabored respiratory effort. Clear to auscultation bilaterally. GI: Mild diffuse abdominal tenderness, mild right CVA tenderness, Nondistended, No rebound or guarding. MSK:Extremities w/o deformity, Normal Active ROM Skin: Warm, Dry. No rashes or lesions. Neuro: Normal Muscle tone, No focal neurological deficits. Psych: Awake, Alert, & Oriented x3. Appropriate mood and affect. Const: Vital Signs, click to edit/add: Vital Signs - 24 hr 08/17/25 10:23 08/17/25 10:34 08/17/25 10:41 Temperature 98.7 F Pulse Rate 93 101 H Pulse Rate [Pulse Oximeter] 106 H Respiratory Rate 16 Blood Pressure 140/111 H Blood Pressure [Ri ght Upper Arm] 142/115 H Pulse Oximetry 98 94 94 Oxygen Delivery Me thod Room Air 08/17/25 10:45 08/17/25 11:05 08/17/25 11:15 Temperature Pulse Rate 105 H 95 91 Pulse Rate [Pulse Oximeter] Respiratory Rate Blood Pressure Blood Pressure [Ri ght Upper Arm] Pulse Oximetry 96 99 99 Oxygen Delivery Me thod 08/17/25 11:21 Temperature Pulse Rate 92 Pulse Rate [Pulse Oximeter] Respiratory Rate Blood Pressure 156/101 H Blood Pressure [Ri ght Upper Arm] Pulse Oximetry 100 Oxygen Delivery Me thod Course Vital Signs Vital signs: Initial Vital Signs Temperature 98.7 F 08/17/25 10:23 Temperature Source Temporal Artery Scan 08/17/25 10:23 Pulse Rate 106 H 08/17/25 10:23 Respiratory Rate 16 08/17/25 10:23 Blood Pressure 142/115 H 08/17/25 10:23 Blood Pressure Mean 124 H 08/17/25 10:23 Pulse Oximetry 98 08/17/25 10:23 Oxygen Delivery Method Room Air 08/17/25 10:23 Vital Signs Temperature 98.7 F 08/17/25 10:23 Pulse Rate 106 H 11/02/25 10:23 Respiratory Rate 16 08/17/25 10:23 Blood Pressure 142/115 H 08/17/25 10:23 Pulse Oximetry 98 08/17/25 10:23 Oxygen Delivery Method Room Air 08/17/25 10:23 Temperature 98.7 F 08/17/25 10:23 Pulse Rate 92 08/17/25 11:21 Respiratory Rate 16 08/17/25 10:23 Blood Pressure 156/101 H 08/17/25 11:21 Pulse Oximetry 100 08/17/25 11:21 Oxygen Delivery Method Room Air 08/17/25 10:23 Medications Administered Medications: Discontinued Medications Generic Name Dose Route Start Last Admin Trade Name Freq PRN Reason Stop Dose Admin Lactated Ringer's 1,000 mls @ 1,000 mls/hr 08/17/25 10:44 08/17/25 10:57 Lactated Ringers 1000 Ml IV 08/17/25 11:43 1,000 mls/hr .Q1H ONE Administration Ondansetron HCl 4 mg 08/17/25 10:44 08/17/25 11:02 Ondansetron 2 Mg/Ml Inj IVP 08/17/25 10:45 4 mg ONCE ONE Administration Medical Decision Making MDM Narrative Medical decision making narrative: Patient is a 30-year-old male presenting for nausea, vomiting, abdominal pain. He does have a history of marijuana use since very well could be cannabinoid hyperemesis syndrome. Will give him some Zofran for nausea. He was shown having elevated creatinine likely from dehydration. Fluids will be ordered. I spoke to a possible doing imaging and he would like to defer that to in outpatient follow-up. That seems reasonable as the symptoms have been going on for several months. Will check a CBC, CMP, magnesium, urinalysis, urine drug screen. Lab work is reassuring. His white count slightly elevated but this is likely from the vomiting. His slightly low sodium but not low enough to be of concern. Creatinine is slightly up from baseline but this likely from dehydration. He has received a L of fluids any states he is feeling much better. I spoke to mom about cannabinoid hyperemesis syndrome but he states he has had issues cyclical vomiting since he was 8. I did inform him I recommend to stop smoking marijuana daily. Zofran prescribed be instymeds. He is safe for discharge and agrees to this plan. Lab Data Labs: Lab Results 08/17/25 08/17/25 Range/Units 10:53 11:50 WBC 13.58 H (4.50-11.00) K/uL RBC 5.91 H (4.30-5.90) m/uL Hgb 17.5 (13.5-17.5) gm/dL Hct 49.8 (37.0-53.0) % MCV 84 (80-100) fL MCH 30 (26-34) pg MCHC 35 (32-36) gm/dL RDW Coeff of Fátima 12.3 (11.5-15.5) % Plt Count 396 (140-440) K/uL Neut % (Auto) 77.4 H (42.0-72.0) % Lymph % (Auto) 12.7 L (20-44) % [place] % (Auto) 9.5 (0.0-11.0) % Eos % (Auto) 0.1 (0.0-7.0) % Baso % (Auto) 0.1 (0.0-3.0) % Neut # (Auto) 10.50 H (1.7-7.0) K/uL Lymph # (Auto) 1.70 (0.90-2.90) K/uL [place] # (Auto) 1.30 H (0.00-0.90) K/UL Eos # (Auto) 0.00 (0.00-0.50) K/uL Baso # (Auto) 0.00 (0.00-0.30) K/uL Abs Immat Gran (auto) 0.00 (0.00-0.30) K/uL Imm/Tot Granulo (auto) 0.2 % Sodium 129 L (135-149) mmol/L Potassium 4.0 (3.6-5.1) mmol/L Chloride 91 L (96-114) mmol/L Carbon Dioxide 25 (20-32) mmol/L Anion Gap 13 (7-15) mEq/L BUN 26 H (5-24) mg/dL Creatinine 1.4 (0.5-1.5) mg/dL Estimated GFR 68 ml/min Glucose 119 H (60-115) mg/dL Calcium 10.3 (8.4-10.6) mg/dL Magnesium 2.4 (1.5-2.6) mg/dL Total Bilirubin 1.3 (0.1-1.5) mg/dL AST 52 H (12-35) U/L ALT 44 (4-50) U/L Alkaline Phosphatase 88 (40-150) U/L Total Protein 8.8 H (6.0-8.3) g/dL Albumin 5.3 H (3.3-5.0) g/dL Ur Drug Screen Comment See Note Discharge Plan Discharge Clinical Impression: Cyclical vomiting Patient Disposition: Home, Self-Care Condition: Improved Instructions: Acute Nausea and Vomiting (ED) Additional Instructions: I do recommend to stop smoking marijuana. This is likely not helping with your cyclical vomiting. You do need follow-up with GI. Return to emergency department for new or worsening symptoms. Prescriptions: No Action duloxetine 60 mg capsule,delayed release(DR/EC) 60 mg PO DAILY albuterol sulfate 90 mcg/actuation HFA aerosol inhaler 2 puff inhalation Q4-6H PRN (Reason: shortness of breath or wheezing) Qty: 8.5 0RF Follow Up/Referrals: Provider,Not a Local [Primary Care Provider, Family Practice] Stand Alone Forms: [employer] Info Instructions
[2025-08-17] MEDS: ONDANSETRON 2 MG/ML inj 4 MG IVP (11:02)
[2025-08-17 11:06] LABS: Hematocrit* 49.8 % (37.0-53.0); Hemoglobin* 17.5 gm/dL (13.5-17.5); Immature Granulocytes Pct Auto 0.2 %; Mean Corpuscular HGB Conc 35 gm/dL (32-36); Mean Corpuscular Hemoglobin 30 pg (26-34); Mean Corpuscular Volume 84 fL (80-100); RDW Coefficient of Variation % 12.3 % (11.5-15.5); Red Blood Count* 5.91 m/uL (4.30-5.90); White Blood Count* 13.58 K/uL (4.50-11.00)
[2025-08-17 11:20] LABS: Immature Granulocytes Abs Auto 0.00 K/uL (0.00-0.30); Lymphocytes Absolute Auto 1.70 K/uL (0.90-2.90); Slide Review Reflex No
[2025-08-17 11:23] LABS: Albumin* 5.3 g/dL (3.3-5.0); Chloride* 91 mmol/L (96-114); Potassium* 4.0 mmol/L (3.6-5.1); Sodium* 129 mmol/L (135-149)
[2025-08-17 11:26] LABS: Alanine Aminotransferase* 44 U/L (4-50); Alkaline Phosphatase* 88 U/L (40-150); Anion Gap 13 mEq/L (7-15); Aspartate Amino Transferase* 52 U/L (12-35); Bilirubin Total* 1.3 mg/dL (0.1-1.5); Blood Urea Nitrogen* 26 mg/dL (5-24); Calcium* 10.3 mg/dL (8.4-10.6); Carbon Dioxide* 25 mmol/L (20-32); Creatinine* 1.4 mg/dL (0.5-1.5); Estimated Glomerular Filt Rate 68 ml/min; Glucose* 119 mg/dL (60-115); Total Protein* 8.8 g/dL (6.0-8.3)
[2025-08-17 11:59] LABS: Appearance Urine Clear (Clear)
[2025-08-17 12:18] LABS: Cannabinoid Screen Urine POSITIVE (Negative); Methamphetamines Screen Urine Negative (Negative); Tricyclic Antidepressant Urine Negative (Negative)
== END 2025-08-17 12:22 | disposition home or self-care (01) ==
PROVIDERS: Emergency Provider Student in an Organized Health Care Education/Training Program
DX: R11.2 Nausea with vomiting, unspecified (principal); R10.9 Unspecified abdominal pain
CPT/HCPCS: 36415; 80053; 80306; 81001; 83735; 85025; 96361; 96374; 99284; J2405; J7120